=== PATIENT | male | born 1995 | race Asian ===

== ENCOUNTER → 2019-05-22 | Outpatient (CLI) | payer BC | LOC: COL.PUL 12:40 | DX: R06.2 Wheezing (principal) ==

== ENCOUNTER → 2019-07-24 | Outpatient (CLI) | payer BC | LOC: COL.PUL 07-03 08:00 | DX: R06.02 Shortness of breath (principal) ==

== ENCOUNTER → 2019-12-20 | Outpatient (CLI) | payer BC | LOC: COL.RAD 14:11 | DX: J98.4 Other disorders of lung (principal) ==